=== PATIENT | male | born 1985 | race African-American/Black ===

== ENCOUNTER 2020-02-04 11:33 | Emergency (ER) | payer MEDICAID ==
[~2020-02-04] VITALS: Ht 180.3 cm; Wt 100.2 kg
[2020-02-04 11:50] VITALS: BP 156/94
--- NOTE | 2020-02-04 11:54 | NUR ---
pt ambulated to bed 12
--- NOTE | 2020-02-04 12:00 | NUR ---
roseline welch at bedside evaluating pt.
[2020-02-04] MEDS ORDERED: KETOROLAC 30 MG/ML VIAL IM ONE (12:05)
[2020-02-04] MEDS ORDERED: IBUPROFEN 800 MG TAB PO ONE (12:10)
--- NOTE | 2020-02-04 12:16 | NUR ---
C/O L HIP/GROIN PAIN X2 WEEKS. PT DENIES INJURY. PT STATES PAIN IS INCREASED FROM SITTING TO STANDING POSITION. PT IS AMBULATORY BUT IS LIMPING DUE TO PAIN. PT AOX4 , AFIBRILE, AMBULATORY WITH STEADY GAIT AND PAIN UPON MOVEMENT OF HIP. HX: TOOTH REMOVAL - CURRENTLY TAKING ANTIBIOTICS/MOTRIN/NORCO
--- NOTE | 2020-02-04 12:20 | NUR ---
PT TO XRAY VIA WHEELCHAIR.
--- NOTE | 2020-02-04 12:35 | NUR ---
PT BACK FROM AY VIA WHEELCHAIR.
--- NOTE | 2020-02-04 12:41 | NUR ---
PT COMFORTABLE IN BED SIDE RAILS UP X1 AND LOCK.
[2020-02-04 13:12] VITALS: BP 156/94
== END 2020-02-04 13:12 | disposition home or self-care (01) ==
LOC: MED 11:33
DX: M25.552 Pain in left hip (principal); R03.0 Elevated blood-pressure reading, without diagnosis of hypertension
CPT/HCPCS: 72170; 73502; 99284; J1885